=== PATIENT | male | born 1980 | race Caucasian/White ===

== ENCOUNTER 2025-10-15 17:15 | Emergency (ER) | payer MEDICAID, SELFPAY ==
--- OUTSIDE RECORDS SUMMARY | 2025-10-15 17:16 | XMS_ITS | Clinical Summary ---
Author Organization [employer] [facility] Address [address] [place] [id number] Care Team Providers Care Human Resources Psychologist Name Role Phone Cindy Ocampo MD Primary Care Provider [phone] Allergies No known active allergies Medications No known medications Active Problems ProblemNoted DateDiagnosed DoysYacryknjrc12/24/2019Closed displaced fracture of fifth metacarpal bone of right hand10/09/2017Closed displaced fracture of fourth metacarpal bone of right hand10/09/2017H/O ETOH abuse11/22/2015Adjustment disorder with mixed anxiety and depressed mood08/02/2013 Resolved Problems ProblemNoted DateDiagnosed DateResolved DateAlcohol virgsnlskc55/30/2013 11/22/2015Alcohol-induced mood phetlnjr58Suicide attempt by carbon monoxide hklwhtecp75 Immunizations ImmunizationAdministration DatesNext DueAMB Influenza, IIV3 (Age >=3 years)(Flu Clinic Only)09/03/2012MB Influenza, IIV4 PF (=>6 mos Flulaval,Fluzone Fluarix)(Flu Clinic Only)08/28/2017,08/25/2015,07/25/2014DTaP06/12/1983 Influenza, IIV3 (Age >=3 years)09/03/2012,09/03/2010,11/19/2007Influenza, IIV4 07/25/2014Polio Virus, Kwdxwkprgdp18/10/1983Td (Age >=7 Years)03/26/1991Tdap 11/26/2018 Family History Medical HistoryRelationNameCommentsGood HealthBrother 1Good HealthBrother 2 AlcoholismBrother 3Good HealthBrother 3Good HealthDaughterAlcohol/DrugFatherETOH AlcoholismFatherPsychiatric illnessFatherdepressionCancerMotherLYMPHOMADiabetes MotherHypertensionMotherAlcoholismPaternal GrandfatherGood HealthSon 1Good HealthSon 2Cancer-colonNo Family HistoryCancer-prostateNo Family HistoryDrug AbuseNo Family HistoryHeart attackNo Family HistoryRelationNameStatusComments Brother 1AliveBrother 2AliveBrother 9YrtsuObihdqkiNgtrx6kwNflcpxNijzcBrdnyjzw GrandfatherDeceasedMaternal GrandmotherDeceasedMotherAlivePaternal Grandfather DeceasedPaternal GrandmotherDeceasedSon 1AliveSon 1Sqgez4ot Social History Tobacco UseTypesPacks/DayYears UsedDateSmoking Tobacco: NeverSmokeless Tobacco: Never Tobacco Cessation:Counseling Given: Yes Alcohol UseStandard Drinks/WeekCommentsNot Currently0 (1 standard drink = 0.6 oz pure alcohol)1 year Sober on 04/02/20PHQ-2AnswerDate RecordedPHQ-2 TOTAL SCORE0 02/17/2024Social ConnectionsAnswerDate RecordedDo you often feel lonely or isolated from those around you?Financial Resource StrainAnswerDate RecordedDifficulty of Paying Living Fiaxknky618ifficulty of Paying Living ExpensesNot on file02/17/2024Food InsecurityAnswerDate RecordedDo you worry your food will run out before you are able to buy more? 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 Gender IdentityNot on fileSexual OrientationNot on fileOccupationIndustryJob Start DateJob End DateNot on fileNot on fileNot on fileNot on file Last Filed Vital Signs Vital SignReadingTime TakenCommentsBlood Qffrntcy879/8204 2:32 PM CDT Zjpoy2227 2:32 PM RHURccuivxndwn20.1 ??C (98.7 ??F)10/21/2023 8:43 AM CSTRespiratory Eceu5092 8:21 AM CDTOxygen Fxnpodswbd07%02/17/2024 2:32 PM CDTInhaled Oxygen Concentration--Tsxzdy96.4 kg (175 lb)02/17/2024 2:32 PM CDT Epviao424.8 cm (5' 10)02/17/2024 2:32 PM CDTBody Mass Index25.11002/17/2024 2:32 PM CDT Plan of Treatment Health MaintenanceDue DateLast DoneCommentsHepatitis B series for 19+ (1 of 3 - 19+ 3-dose series)1997Pneumococcal series for age 6-49 (1 of 2 - PCV) 1997Fecal testing sDNA-FIT (Cologuard) for age 45-MI (ht and wt on same day) for age 18+, 04/05/2022, 11/15/2020, Additional history existsDepression screening for age 12+, 10/24/2023, 10/22/2023, Additional history existsCOVID-19 vaccine series ( - 2024- season)2025Influenza Vaccine (#1)/, 08/25/2015, 07/25/2014, Additional history existsTetanus myifoyy61, 03/26/1991Lipids for age 45-7504/, 04/05/2022, 04/07/2020, Additional history existsRSV vaccine for adults or (1 - 1-dose 75+ series)2053Hepatitis C screening for age 18-19Ezryxrker18/24/2019, 08/16/2014HIV for age 15-59Kcpckvoct25/11/2021, 11/26/2018, 08/16/2014 Procedures Procedure NamePriorityDate/TimeAssociated DiagnosisCommentsLIPID PANEL W REFLEX MEASURED XBPPjefzja63/29/2024 2:43 PM CDT Lipid screening ANTI HIV 1/8Yhztvml52/11/2021 4:26 PM CDT Screening examination for STD (sexually transmitted disease) ANTI FXBMulzhen87/24/2019 5:26 PM 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 Screen for STD (sexually transmitted disease) from Last 3 Months or Most Recently Relevant to Health Maintenance Results * LIPID PANEL W REFLEX MEASURED LDL (03/01/2024 2:43 PM CDT)ComponentValueRef RangeTest MethodAnalysis TimePerformed AtPathologist Signature CHOLESTEROL,[id number] - 199 mg/dL03/02/2024 6:35 AM [facility]-CENTRAL LABORATORYComment: Cholesterol, Total Reference Ranges Desirable <200 mg/dL Borderline 200-239 mg/dL High >=240 mg/dL DZBWBIBVFQDZG33<150 mg/dL03/02/2024 6:35 AM [facility]AL LABORATORYHDL SCIMDWYEDIQ81>40 mg/dL03/02/2024 6:35 AM [facility]-CENTRAL LABORATORYNON-HDL BDPHGCETYCB631<145 mg/dl03/02/2024 6:35 AM [facility]-CENTRAL LABORATORYCHOL/HDL RATIO4.02<4.50003/02/2024 6:35 AM [facility]-CENTRAL LABORATORYLDL IUGBVOKOSIR442<=130 mg/dL03/02/2024 6:35 AM [facility]-CENTRAL LABORATORYVLDL QWYTDDFONGN14<=30 mg/dL03/02/2024 6:35 AM CD[facility]-CENTRAL LABORATORYPROVIDER ORDERED DSLGYKUTPLZI11/30/2024 6:35 AM [facility]-CENTRAL LABORATORYSpecimen (Source)Anatomical Location / Laterality Collection Method / VolumeCollection TimeReceived TimeBloodBLOOD SPECIMEN / UnknownVenipuncture / Hiwcpvr6703/01/2024 2:43 PM CDT03/01/2024 2:43 PM CDT Narrative Authorizing ProviderResult TypeResult StatusCindy Ocampo MDCHEMISTRYFinal ResultPerforming OrganizationAddressCity/State/ZIP CodePhone Number [facility] [address] [place] [address], * ANTI HIV 1/2 (06/13/2021 4:26 PM CDT)ComponentValueRef RangeTest Method Analysis TimePerformed AtPathologist SignatureHIV-1/HIV-2 ANTIBODYNon-Reactive Non-Xwecsipb12/12/2021 4:27 PM CDTALADVENTHEALTHCENTRAL [facility] Comment:HIV-1 p24 and HIV-1/HIV-2 Ab not detected.Specimen (Source)Anatomical Location / LateralityCollection Method / VolumeCollection TimeReceived Time BloodBLOOD SPECIMEN / UnknownVenipuncture / Rtyrpsb5806/13/2021 4:26 PM CDT 06/13/2021 4:31 PM CDT Narrative Authorizing ProviderResult TypeResult StatusAdialilian Ocampo MDSEND OUTSFinal ResultPerforming OrganizationAddressCity/State/ZIP CodePhone Number [facility] 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 [place] [address], [place] from Last 3 Months or Most Recently Relevant to Health Maintenance Insurance Advance Directives * Full Code (Latest Code Status on File) Date ActivatedDate InactivatedComments08/01/2013 11:08 08/04/2013 8:34 PM Care Teams Team MemberRelationshipSpecialtyStart DateEnd Date Cindy Ocampo MD [address] [place] [address] PCP - GeneralFamily Cgzhoceu21/5/19
[2025-10-15 17:28] VITALS: BP 149/90; PULSE 82; RESP 18; TEMP 36.3; O2SAT 99; BMI 24.8
--- NOTE | 2025-10-15 18:49 | CRLHL7_ITS ---
For Patients: As a result of the Cures Act, medical imaging exams and procedure reports are released immediately into your electronic medical record. You may view this report before your referring provider. If you have questions, please contact your health care provider. Indication: Trauma. Technique: Right 5th digit, 3 views. Comparison: None. Findings/Impression: Bones: Acute mildly displaced fracture of the 5th digit proximal phalanx. Chronic appearing deformity of the 5th metacarpal neck with additional lucency through the neck, likely a additional superimposed acute nondisplaced fracture. Joint spaces: Unremarkable. Soft tissues: Associated soft tissue swelling. Dictated by Socrates Zapata MD @ 10/15/2025 7:36:20 PM (Electronically Signed)
--- NOTE | 2025-10-15 19:32 | ED_ITS ---
HPI - General Adult General Chief complaint: Extremity Pain/Injury, Upper Stated complaint: Right Pinkie fracture concerns Time Seen by Provider: 10/15/25 19:10 History of Present Illness HPI narrative: pt slipped on stairs hit right hand on railing, pain to right hand about 5th finger 45-year-old man presenting to the emergency department with concern of injury to his right 5th finger. Struck, caught his right hand somehow on stair railing and also managed to slip down some stairs. No other significant injury was sustained other than to his right hand. Does endorse an old fracture in the right hand when I ask based on what I see on x-ray. Related Data Home Medications ?Medication ?Instructions ?Recorded ?Confirmed No Known Home Medications 10/15/2510/03 Allergies Allergy/AdvReac Type Severity Reaction Status Date / Time No Known Drug Allergies Allergy Verified 10/15/25 17:27 Review of Systems Status of ROS: Reports: 6 or more systems reviewed and unremarkable except as noted in History and below Exam Narrative: Exam Narrative: Pleasant. Introspective. Calm. Favoring his right hand a little. There is some bruising noted at the outer aspect of the proximal phalanx of the 5th finger. Some mild swelling in this area. Tender also to palpation in the proximal phalanx. He is limited with minimal extension of the right 5th finger. Be consistent with prior injury. Const: Vital Signs, click to edit/add: Vital Signs - 24 hr 10/15/25 17:28 Temperature 97.4 F L Pulse Rate [Right Pulse Oximeter] 82 Respiratory Rate 18 Blood Pressure [Ri ght Upper Arm] 149/90 H Pulse Oximetry 99 Oxygen Delivery Me thod Room Air Documenting provider has reviewed patient's vital signs: yes Course Vital Signs Vital signs: Initial Vital Signs Temperature 97.4 F L 10/15/25 17:28 Temperature Source Temporal Artery Scan 10/15/25 17:28 Pulse Rate 82 10/15/25 17:28 Respiratory Rate 18 10/15/25 17:28 Blood Pressure 149/90 H 10/15/25 17:28 Blood Pressure Mean 109 H 10/15/25 17:28 Blood Pressure Position Sitting 10/15/25 17:28 Pulse Oximetry 99 10/15/25 17:28 Oxygen Delivery Method Room Air 10/15/25 17:28 Vital Signs Temperature 97.4 F L 10/15/25 17:28 Pulse Rate 82 10/15/25 17:28 Respiratory Rate 18 10/15/25 17:28 Blood Pressure 149/90 H 10/15/25 17:28 Pulse Oximetry 99 10/15/25 17:28 Oxygen Delivery Method Room Air 10/15/25 17:28 Temperature 97.4 F L 10/15/25 17:28 Pulse Rate 82 10/15/25 17:28 Respiratory Rate 18 10/15/25 17:28 Blood Pressure 149/90 H 10/15/25 17:28 Pulse Oximetry 99 10/15/25 17:28 Oxygen Delivery Method Room Air 10/15/25 17:28 Medical Decision Making MDM Narrative Medical decision making narrative: Would have concerns about finger fracture of proximal phalanx or perhaps the distal 5th metacarpal. Could simply be a sprain. I have ordered x-rays prior to seeing this patient in busy emergency department. By my independent review looks to show an oblique fracture in the proximal phalanx of the 5th finger of the right hand. Minimal displacement. Old fracture at the distal aspect of the 5th metacarpal as well with some palmar angulation of the neck/head here. There is no tenderness in this location on physical exam; I think this is only old. Indication: Trauma. Technique: Right 5th digit, 3 views. Comparison: None. Findings/Impression: Bones: Acute mildly displaced fracture of the 5th digit proximal phalanx. Chronic appearing deformity of the 5th metacarpal neck with additional lucency through the neck, likely a additional superimposed acute nondisplaced fracture. Joint spaces: Unremarkable. Soft tissues: Associated soft tissue swelling. Dictated by Socrates Zpaata MD @ 10/15/2025 7:36:20 PM I did return to place splints. Did fashion the ulnar gutter style to cover ulnar side of the hand and 4th and 5th fingers; stopping at the wrist. Also formed a foam-backed aluminum splint over the dorsal aspect of the 5th finger and the 5th metacarpal as another option. Tolerated well. See patient discharge plan for further discussion Can remove these splints for washing up but I would wear them most of the time over the next couple of weeks at which point would follow up for re-evaluation. Use whichever splint you might prefer depending on your activity for the day. Could probably be seen in primary care or could follow-up with orthopedics clinic at [phone] Ibuprofen, acetaminophen, elevation for comfort. Discharge Plan Discharge Clinical Impression: Fracture of proximal phalanx of finger of right hand Patient Disposition: Home, Self-Care Condition: Improved Additional Instructions: Can remove these splints for washing up but I would wear them most of the time over the next couple of weeks at which point would follow up for re-evaluation. Use whichever splint you might prefer depending on your activity for the day. Could probably be seen in primary care or could follow-up with orthopedics clinic at [phone] Ibuprofen, acetaminophen, elevation for comfort. Activity Level: No Restrictions Discharge Diet: Regular Prescriptions: No Action No Known Home Medications Stand Alone Forms: [facility] Medical Info Instructions
== END 2025-10-15 21:02 | disposition home or self-care (01) ==
LOC: ED 20:53
PROVIDERS: Emergency Provider Family Medicine; PCP Family Medicine
DX: S62.646A Nondisplaced fracture of proximal phalanx of right little finger, initial encounter for closed fracture (principal); W10.9XXA Fall (on) (from) unspecified stairs and steps, initial encounter
CPT/HCPCS: 29130; 73140; 99282; 99284